=== PATIENT | female | born 1955 | race Caucasian/White ===

== ENCOUNTER → 2024-02-03 07:53 | Outpatient (REF) | payer MEDICARE, OTHER, SELFPAY | LOC: HWRAD 07:53 | PROVIDERS: ATTENDING PHYSICIAN Obstetrics & Gynecology; FAMILY PHYSICIAN Family Medicine | DX: N39.8 Other specified disorders of urinary system (principal) | CPT/HCPCS: 76770 ==

== ENCOUNTER → 2024-04-01 10:08 | Outpatient (REF) | payer MEDICARE, OTHER, SELFPAY | LOC: HWWDC 10:08 | PROVIDERS: ATTENDING PHYSICIAN Physician Assistant Medical | DX: Z12.31 Encounter for screening mammogram for malignant neoplasm of breast (principal) | CPT/HCPCS: 77063; 77067 ==

== ENCOUNTER 2024-05-02 20:02 | Emergency (ER) | payer MEDICARE, OTHER, SELFPAY ==
[2024-05-02 20:05] VITALS: BP 126/88
--- NOTE | 2024-05-02 21:24 | ED.GENMED ---
History of Present Illness
General
Chief Complaint: Skin Problem
Source: patient
Exam Limitations: none
Time Seen by Provider: 05/02/24 21:07
History of Present Illness
History of Present Illness:
This is a 68 year old female that comes in with c/o pain in the left 5th toe. States that she was squatting last night and she went to get up and lost her balance. State that she fell over. States that at first she had no pain and that she was not
dizzy. States that she then started with left fifth toe pain about 1/2 hour later and now feels that the toe is a little red. States that she has been icing the toe, using Ibuprofen and elevating. Denies any dizziness, headache, fever, chills,
chest pain, SOB, abd pain, nausea, vomting, diarrhea.
Past History
Past History
ED Past Medical History: GERD, Hypothyroidism, Psychiatric (Anxiety), Other (Intermittent asthmatic bronchitis, PNA, ) and Other (Irritable bowel syndrome)
ED Past Surgical History: Appendectomy, Gynecological (Endometrial ablation), Orthopedic (Spinal fusion 2004), Tonsilectomy and Other (Breast implants)
Social History
Tobacco: Non-smoker
Alcohol: Occasional
Drug: None
Personal:
Living: with family
Employment: Retired
Family History
Family History: Other (Noncontributory)
Review of Systems
Review of Systems
All Other Systems: ROS reviewed and negative except as documented in HPI and ROS
Constitutional: Reports no symptoms
EENT: Reports no symptoms
Respiratory: Reports no symptoms
Cardiac: Reports no symptoms
ABD/GI: Reports no symptoms
: Reports no symptoms
Musculoskeletal: Reports other (Pain left fifth toe with redness)
Skin: Reports other (redness of left fifth toe)
Neurological: Reports no symptoms
Psychiatric: Reports no symptoms
Phy Exam
General Physical Exam
General Presentation: well appearing and no apparent distress
General age: appears stated age
General Skin: warm and dry
General Habitus: normal
General Mental: alert
Eye Exam
Eye Exam: EOMI
Musculoskeletal Exam
Musculoskeletal Exam: other (Negative for tenderness with palpation of the left fifth toe. )
Skin Exam
Skin Exam: normal color, warm/dry, no petechia and other (Slight redness of the distal left fifth toe. Nail thick on one half and flat on the other half, )
Psychiatric Exam
Psychiatric Exam: normal mood/affect
Course
Orders/Labs/Results
Orders:
Orders
05/02/24 21:24
Toes 2 Views, Left CR [CR Toe(s) Min 2 Vw Left] Urgent
Comment:
Reason For Exam: Pain, due to fall
Indicate Which Toe:: Fifth
Vital Signs
Initial and Last Documented VS:
Initial Vital Signs
Temp Pulse Resp BP Pulse Ox
98.3 F 90 18 126/88 100
05/02/24 20:05 05/02/24 20:05 05/02/24 20:05 05/02/24 20:05 05/02/24 20:05
Last Documented Vital Signs
Temp Pulse Resp BP Pulse Ox
98.3 F 90 18 126/88 100
05/02/24 20:05 05/02/24 20:05 05/02/24 20:05 05/02/24 20:05 05/02/24 20:05
MDM/Problems Addressed
Differential Diagnosis Includes:
Left Toe fracture, Contusion
MDM/Problems Addressed:
This is a 68 year old female that comes in with c/o left toe pain and redness. States that she fell when squatting last night and then about 1/2 hour after her toe started to hurt.
Will get X-ray.
back into see patient. Explained that there does no appear to be a fractures. However, this will be read again by the radiologist and it different she would be called. Will place patient ON Keflex to treat any infection. Patient to follow up with
the Pediatrist. Return with any concerns.
Chronic conditions affecting care:
NA
Acute Exacerbation and/or Progression of Chronic Illness:
NA
*Radiology
Radiology exam reviewed: preliminary read by ED provider (Left fifth toe- Negative for fracture. )
*Pulse Oximetry
Patient hypoxic: no
*EKG
Interpreted by ED Provider?: NA
Rate: EKG- N/A
*Morning Show Newscast Producer Interpretation
Rate: Morning Show Newscast Producer- N/A
*Critical Care Note
Total Time (30-74mins, 75-104mins- exclusive of procedures): Not Applicable
ED Attending Note
-
Portions of this chart may have been created with voice recognition software.� Occasional wrong word or��sound alike� substitutions may have occurred due to the inherent limitations of voice recognition software.
Discharge Plan
Departure
Patient Disposition: Home (Routine Discharge)
Date of Disposition: 05/02/24
Time of Disposition: 22:02
Patient with high blood pressure during this ER visit?: No
Condition: Good
Covid-19: Not Applicable
Discharge Problem:
Injury of toe on left foot
Instructions: Toe Injury (DC)
Prescriptions:
New
cephalexin 500 mg capsule
500 mg PO BID 7 Days Qty: 14 0RF
No Action
albuterol sulfate [Ventolin HFA] 18 GM HFA aerosol inhaler
18 gm IH Q4HPRN PRN (Reason: cough) Qty: 1 0RF
benzonatate 200 mg capsule
200 mg PO TID PRN (Reason: cough) Qty: 30 0RF
Referrals:
Jaun Silva MD [Family Provider] -
Asael Finnegan DPM [Specified Professional Personl] - Call in 1-3 days for appt
Activity Restrictions/Additional Instructions:
As discussed, there does not appear to be any toe fractures. This may be the start of an infection of the nail bed. You have been given a dose of antibiotic here and a prescription has been sent to your Pharmacy. Please follow up with the Pediatrist
for further evaluation. You may continue to use Tylenol 1000mg every 6 hours for pain and alternate with Ibuprofen 600mg every 6 hours with food. IF YOU HAVE INCREASED REDNESS, FEVER. OR YOU HAVE ANY OTHER CONCERNS PLEASE RETURN TO THE EMERGENCY
ROOM.
Interventions
Interventions:
*Risk Screen - Suicide Last Done: 05/02/24 20:05
*General Assessment Last Done: 05/02/24 21:46
*Neglect/Abuse Screening Last Done: 05/02/24 20:05
ED- Fall Risk Assessment Last Done: 05/02/24 21:46
*ED COVID-19 Vaccine History Last Done: 05/02/24 21:46
Discharge Date and Time
Print Language: SYRIAN
[2024-05-02] MEDS: KEFLEX 500 MG PO (22:05)
== END 2024-05-02 22:29 | disposition home or self-care (01) ==
LOC: EMR 20:02
PROVIDERS: EMERGENCY PHYSICIAN Emergency Medicine; FAMILY PHYSICIAN Family Medicine
DX: S99.922A Unspecified injury of left foot, initial encounter (principal); W19.XXXA Unspecified fall, initial encounter; K21.9 Gastro-esophageal reflux disease without esophagitis; E03.9 Hypothyroidism, unspecified; F41.9 Anxiety disorder, unspecified; K58.9 Irritable bowel syndrome, unspecified; Z90.49 Acquired absence of other specified parts of digestive tract; Z98.1 Arthrodesis status
CPT/HCPCS: 99283; 73660

== ENCOUNTER → 2024-07-29 07:14 | Outpatient (REF) | payer MEDICARE, OTHER, SELFPAY ==
[2024-07-29 09:54] LABS: % Basophils 1.3 % (0-2); % Eosinophils 2.7 % (0-6); % Immature Granulocytes 0.2 % (0-0.5); % Monocytes 10.7 % (1.7-9.3); % Neutrophils 51.1 % (42.2-75.2); Absolute Basophils 0.1 10^3/uL (0-0.2); Absolute Eosinophils 0.1 10^3/uL (0-0.7); Absolute Lymphocytes 1.8 10^3/uL (1.2-3.4); Absolute Monocytes 0.6 10^3/uL (0.1-0.6); Absolute Neutrophils 2.7 10^3/uL (1.4-6.5); Hematocrit 42.3 % (37.0-47.0); Hemoglobin 13.5 g/dL (12.0-16.0); Mean Corp Hgb Conc. 31.9 g/dL (33.0-37.0); Mean Corpuscular Hgb 26.9 pg (27.0-31.0); Mean Corpuscular Volume 84.3 fL (81.0-99.0); Mean Platelet Volume 10.5 fL (7.4-10.4); Nucleated Red Blood Cells % 0 %; Platelet Count 345 10^3/uL (130-400); Red Blood Cell Count 5.02 10^6/uL (4.20-5.40); Red Cell Dist. Width 13.6 % (11.5-14.5); White Blood Cell Count 5.2 10^3/uL (4.8-10.8)
[2024-07-29 11:18] LABS: ALT (SGPT) 25 U/L (0-35); AST (SGOT) 35 U/L (14-36); Albumin 4.3 g/dl (3.5-5.0); Alkaline Phosphatase 73 U/L (38-126); Blood Urea Nitrogen 15 mg/dl (7-17); Calcium 9.7 mg/dl (8.4-10.2); Carbon Dioxide 30 mmol/L (22-30); Chloride 100 mmol/L (98-107); Glucose 86 mg/dl (70-99); HDL Cholesterol 57 mg/dl; LDL Cholesterol, Calculated 126 mg/dl; Potassium 5.1 mmol/L (3.5-5.1); Sodium 139 mmol/L (135-145); Total Bilirubin 0.3 mg/dl (0.2-1.3); Total Cholesterol 208 mg/dl (50-199); Triglyceride 126 mg/dl (10-149); Very Low Density Lipoprotein 25 mg/dl (0-30); eGFR > 60.00
[2024-07-29 11:29] LABS: Free T4 0.94 ng/dl (0.78-2.19)
[2024-07-29 11:43] LABS: TSH 4.95 uIU/ml (0.47-4.68)
== END ==
LOC: HWLAB 07:14
PROVIDERS: ATTENDING PHYSICIAN Family Medicine
DX: E03.9 Hypothyroidism, unspecified (principal); E78.00 Pure hypercholesterolemia, unspecified
CPT/HCPCS: 36415; 80053; 80061; 84439; 84443; 85025

== ENCOUNTER 2024-08-03 10:20 | Outpatient (RCR) | payer MEDICARE, OTHER, SELFPAY | END 2024-08-03 23:59 | disposition home or self-care (01) | LOC: RPT 10:20 | PROVIDERS: ATTENDING PHYSICIAN Obstetrics & Gynecology; FAMILY PHYSICIAN Family Medicine | DX: N39.8 Other specified disorders of urinary system (principal); M62.89 Other specified disorders of muscle; Z73.6 Limitation of activities due to disability; R27.8 Other lack of coordination; M62.81 Muscle weakness (generalized) | CPT/HCPCS: 97140; 97163; 97530 ==

== ENCOUNTER → 2024-08-20 16:59 | Outpatient (REF) | payer MEDICARE, OTHER, SELFPAY | LOC: HWRAD 16:59 | PROVIDERS: ATTENDING PHYSICIAN Family Medicine | DX: M25.561 Pain in right knee (principal); M79.645 Pain in left finger(s) | CPT/HCPCS: 73140; 73564 ==

== ENCOUNTER 2024-09-01 15:05 | Outpatient (RCR) | payer MEDICARE, OTHER, SELFPAY | END 2024-09-01 23:59 | disposition home or self-care (01) | LOC: RPT 15:05 | PROVIDERS: ATTENDING PHYSICIAN Obstetrics & Gynecology; FAMILY PHYSICIAN Family Medicine | DX: N39.8 Other specified disorders of urinary system (principal); M62.89 Other specified disorders of muscle; R27.8 Other lack of coordination; M62.81 Muscle weakness (generalized); Z73.6 Limitation of activities due to disability | CPT/HCPCS: 97140; 97530 ==

== ENCOUNTER 2024-09-24 09:53 | Outpatient (RCR) | payer MEDICARE, OTHER, SELFPAY | END 2024-09-24 23:59 | disposition home or self-care (01) | LOC: RPT 09:53 | PROVIDERS: ATTENDING PHYSICIAN Obstetrics & Gynecology; FAMILY PHYSICIAN Family Medicine | DX: N39.8 Other specified disorders of urinary system (principal); M62.89 Other specified disorders of muscle; R27.8 Other lack of coordination; M62.81 Muscle weakness (generalized); Z73.6 Limitation of activities due to disability | CPT/HCPCS: 97014; 97140; 97530 ==

== ENCOUNTER → 2024-10-08 09:55 | Outpatient (REF) | payer MEDICARE, OTHER, SELFPAY ==
[2024-10-08 13:52] LABS: ALT (SGPT) 29 U/L (0-35); AST (SGOT) 35 U/L (14-36); Albumin 4.3 g/dl (3.5-5.0); Alkaline Phosphatase 78 U/L (38-126); Blood Urea Nitrogen 14 mg/dl (7-17); Calcium 9.6 mg/dl (8.4-10.2); Carbon Dioxide 30 mmol/L (22-30); Chloride 98 mmol/L (98-107); Glucose 84 mg/dl (70-99); Potassium 4.5 mmol/L (3.5-5.1); Sodium 136 mmol/L (135-145); Total Bilirubin 0.4 mg/dl (0.2-1.3); Total Protein 6.9 g/dl (6.3-8.2); eGFR > 60.00
[2024-10-08 14:18] LABS: Free T4 1.57 ng/dl (0.78-2.19)
[2024-10-08 14:32] LABS: TSH 0.46 uIU/ml (0.47-4.68)
== END ==
LOC: HWLAB 09:55
PROVIDERS: ATTENDING PHYSICIAN Family Medicine
DX: E03.9 Hypothyroidism, unspecified (principal)
CPT/HCPCS: 36415; 80053; 84439; 84443

== ENCOUNTER 2024-11-03 11:16 | Outpatient (RCR) | payer MEDICARE, OTHER, SELFPAY | END 2024-11-04 08:41 | disposition home or self-care (01) | LOC: RPT 11:16 | PROVIDERS: ATTENDING PHYSICIAN Obstetrics & Gynecology; FAMILY PHYSICIAN Family Medicine | DX: N39.8 Other specified disorders of urinary system (principal); M62.89 Other specified disorders of muscle; Z73.6 Limitation of activities due to disability; R27.8 Other lack of coordination; M62.81 Muscle weakness (generalized) | CPT/HCPCS: 97014; 97112; 97530 ==

== ENCOUNTER → 2024-11-17 10:32 | Outpatient (REF) | payer MEDICARE, OTHER, SELFPAY | LOC: HWRAD 10:32 | PROVIDERS: ATTENDING PHYSICIAN Nurse Practitioner Family; FAMILY PHYSICIAN Family Medicine | DX: R10.2 Pelvic and perineal pain (principal) | CPT/HCPCS: 76830; 76856 ==

== ENCOUNTER → 2025-03-15 11:11 | Outpatient (REF) | payer MEDICARE, OTHER, SELFPAY | LOC: DHSLP 11:11 | PROVIDERS: ATTENDING PHYSICIAN Internal Medicine; FAMILY PHYSICIAN Family Medicine | DX: G47.33 Obstructive sleep apnea (adult) (pediatric) (principal) | CPT/HCPCS: 95800 ==

== ENCOUNTER → 2025-04-20 12:07 | Outpatient (REF) | payer MEDICARE, OTHER, SELFPAY | LOC: HWWDC 12:07 | PROVIDERS: ATTENDING PHYSICIAN Obstetrics & Gynecology; FAMILY PHYSICIAN Family Medicine | DX: Z12.31 Encounter for screening mammogram for malignant neoplasm of breast (principal) | CPT/HCPCS: 77063; 77067 ==

== ENCOUNTER → 2025-05-04 13:47 | Outpatient (REF) | payer MEDICARE, OTHER, SELFPAY | LOC: DHSLP 13:47 | PROVIDERS: ATTENDING PHYSICIAN Internal Medicine; FAMILY PHYSICIAN Family Medicine | DX: G47.33 Obstructive sleep apnea (adult) (pediatric) (principal); G47.61 Periodic limb movement disorder | CPT/HCPCS: 95810 ==

== ENCOUNTER → 2025-06-15 14:23 | Outpatient (REF) | payer MEDICARE, OTHER, SELFPAY | LOC: HWRAD 14:23 | PROVIDERS: ATTENDING PHYSICIAN Obstetrics & Gynecology; FAMILY PHYSICIAN Family Medicine | DX: Z78.0 Asymptomatic menopausal state (principal) | CPT/HCPCS: 77080 ==